=== PATIENT | female | born 1970 | race Caucasian/White ===

== ENCOUNTER 2020-07-03 07:16 | Emergency (ER) | payer OTHER, SELFPAY ==
--- NOTE | ~2020-07-03 | US_ITS ---
EXAMINATION: US venous doppler LE RT DATE: 07/03/2020 08:28 INDICATION: Right lower limb pain TECHNIQUE: Grayscale ultrasound images without and with compression and Doppler ultrasound images of the right lower extremity veins were obtained. COMPARISON: None. FINDINGS: Noncompressible occlusive appearing deep venous thrombosis in one of the paired right posterior tibia l veins near the ankle. The second right posterior tibial vein is patent. The visualized portions of right common femoral vein, profunda (deep) femoral vein, femoral vein, popliteal vein, peroneal trunk , peroneal veins, gastrocnemius vein and greater saphenous vein outflow are patent. IMPRESSION: 1. [id number] deep venous thrombosis in one of the paired right posterior tibial veins near the ankle. Reviewed, dictated and finalized at location A. IMPRESSION: 1. [id number] deep venous thrombosis in one of the paired right posterior tibial veins near the ankle.
--- NOTE | ~2020-07-03 | XR_ITS ---
EXAMINATION: XR ankle RT min 3V DATE: 07/03/2020 08:00 INDICATION: Right ankle pain and swelling TECHNIQUE: Anteroposterior, oblique, mortise, and lateral views of the right ankle were obtained. COMPARISON: None. FINDINGS: Alignment is normal. No fracture. Joint spaces are well maintained. No ankle joint effusion. [place] r calcaneal spur. Mild soft tissue swelling about the medial malleolus. IMPRESSION: 1. No right ankle joint effusion or acute osseous abnormality. Reviewed, dictated and finalized at location A.
[2020-07-03 07:27] VITALS: BP 137/104; PULSE 80; RESP 20; TEMP 36.3; O2SAT 98
--- NOTE | 2020-07-03 08:09 | ED.LOWEXIN ---
HPI - Extremity Injury (Lower) General Chief Complaint: Extremity Injury, Lower Stated Complaint: pain behind knee I think I have a blood clot Time Seen by Provider: 07/03/20 07:51 Source: patient Mode of arrival: ambulatory Limitations: no limitations History of Present Illness HPI Narrative: This patient is a 49 year old female who presents for evaluation of right ankle and lower leg pain. She states 2 days ago she noticed pain to right ankle and lower leg. She states her ankle felt warm and was red. This morning she noticed that her pain has improved and the redness is gone. She has come to the ER because she states the pain felt similar to when she had a DVT 15 years ago. She denies chest pain or sob. Related Data Allergies Allergy/AdvReac Type Severity Reaction Status Date / Time Penicillins Allergy Mild Hives Verified 07/03/20 12:17 propoxyphene AdvReac Nausea and Verified 07/03/20 12:18 [From Darvocet-N] Vomiting Review of Systems Review of Systems: All systems reviewed & are unremarkable except as noted in HPI and below Constitutional: Constitutional: Denies chills and Denies fever(s) Respiratory: Respiratory: Denies cough and Denies dyspnea Musculoskeletal: Musculoskeletal: Reports arthralgias PMFSH Past Medical History Medical History (Updated 07/03/20 @ 12:19 by Miguelina Guillen MD) DVT (deep venous thrombosis) Ulcerative colitis Social History Social History (Updated 07/03/20 @ 08:15 by Miguelina Guillen MD) Smoking status: Never smoker Alcohol intake: never Exam Const: General: no acute distress and alert Orientation/consciousness: patient oriented x3 Eyes: EOM: EOMs intact bilaterally Chest: Chest palpation & inspection: normal inspection of the chest Resp: Effort & Inspection: normal respiratory effort and no retractions Auscultation: clear to auscultation bilaterally Cardio: Rate: regular rate Rhythm: regular rhythm Heart sounds: no murmurs GI: GI Palp: Yes Soft to palpation, No Tenderness to palpation present (GI), No Guarding due to palpation present (GI) and No Rigid due to palpation Skin: General skin exam: normal color Rashes: no rashes Neuro: General: patient oriented x3 and moves all extremities Extrem: General: no pedal edema Other: TTP right medial ankle, no erythema, no increased warm Psych: Mental Status: mental status grossly normal Affect: normal affect Course Reevaluation(s) Reevaluation #1: I have discussed with patient that she was found to have DVT. I notified Dr. bowen's office of patient diagnosis and treatment Date: 07/03/20 Time: 12:16 Vital Signs Vital signs: Vital Signs Temperature 97.4 F L 07/03/20 07:27 Pulse Rate 80 07/03/20 07:27 Respiratory Rate 20 07/03/20 07:27 Blood Pressure 137/104 H 07/03/20 07:27 Pulse Oximetry 98 07/03/20 07:27 Temperature 97.4 F L 07/03/20 07:27 Pulse Rate 80 07/03/20 07:27 Respiratory Rate 20 07/03/20 07:27 Blood Pressure 137/104 H 07/03/20 07:27 Pulse Oximetry 98 07/03/20 07:27 MDM - Extremity Injury (Lower) Lab Data Attestation: I reviewed the patient's lab results. Result diagrams: 07/03/20 11:56 07/03/20 10:56 Labs: Lab Results 07/03/20 07/03/20 07/03/20 Range/Units 10:56 10:56 11:56 WBC 6.4 (4.5-10.0) K/mm3 RBC 4.45 (4.2-5.4) M/mm3 Hgb 13.0 (12.0-15.0) g/dL Hct 40.4 (37.0-47.0) % MCV 90.8 (80-100) fl MCH 29.2 (26-34) pg MCHC 32.2 (32-36) g/dl RDW 12.5 (11.5-14.5) % Plt Count 216 (150-375) k/mm3 MPV 10.7 H (7.4-10.4) fl Immature Gran % (Auto) 0.3 (0-0.5) % Neut % (Auto) 48.2 (45.5-73.1) % Lymph % (Auto) 44.6 H (18.3-44.2) % [place] % (Auto) 5.1 (2.6-8.5) % Eos % (Auto) 0.6 (0-4.4) % Baso % (Auto) 1.2 (0.2-1.2) % Lymph # (Auto) 2.87 (0.9-3.2) K/mm3 [place] # (Auto) 0.3 (0.1-0.6) K/mm3 Eos # (Auto) 0.0 (0-0.3) K/mm3 Baso
[2020-07-03 11:15] LABS: Anion Gap 8 mmol/L (8-16); Blood Urea Nitrogen 11 mg/dL (7-17); Calcium 9.4 mg/dL (8.4-10.2); Carbon Dioxide 28 mmol/L (22-30); Chloride 106 mmol/L (98-107); Estimated CRCL calculation 90 ml/min; Estimated Glomerular Filt Rate > 60; Glucose 103 mg/dL (65-105); INR 1.1; Partial Thromboplastin Time 27.5 SECONDS (22.3-36.8); Sodium 142 mmol/L (137-145)
[2020-07-03 12:02] LABS: Basophils Absolute Auto 0.1 K/mm3 (0.0-0.1); Basophils Percent Auto 1.2 % (0.2-1.2); Eosinophils Percent Auto 0.6 % (0-4.4); Hematocrit 40.4 % (37.0-47.0); Immature Granulocyte Absolute 0.02 K/mm3 (0.00-0.031); Immature Granulocyte Percent A 0.3 % (0-0.5); Lymphocytes Absolute Auto 2.87 K/mm3 (0.9-3.2); Lymphocytes Percent Auto 44.6 % (18.3-44.2); Mean Corpuscular HGB Conc 32.2 g/dl (32-36); Mean Corpuscular Hemoglobin 29.2 pg (26-34); Mean Corpuscular Volume 90.8 fl (80-100); Mean Platelet Volume 10.7 fl (7.4-10.4); Monocytes Absolute Auto 0.3 K/mm3 (0.1-0.6); Monocytes Percent Auto 5.1 % (2.6-8.5); Neutrophils Absolute Auto 3.1 K/mm3 (1.3-6.7); Neutrophils Percent Auto 48.2 % (45.5-73.1); Platelet Count Result 216 k/mm3 (150-375); Red Blood Count 4.45 M/mm3 (4.2-5.4); Red Cell Distribution Width 12.5 % (11.5-14.5); White Blood Count 6.4 K/mm3 (4.5-10.0)
[2020-07-03] MEDS: APIXABAN 5 MG TABLET 10 MG PO (12:19)
== END 2020-07-03 12:32 | disposition home or self-care (01) ==
PROVIDERS: Emergency Provider General Practice; PCP Internal Medicine
DX: I82.441 Acute embolism and thrombosis of right tibial vein (principal)
CPT/HCPCS: 36415; 73610; 80048; 85025; 85610; 85730; 93971; 99284; A9270

== ENCOUNTER 2021-11-20 12:07 | Emergency (ER) | payer OTHER, SELFPAY ==
--- NOTE | ~2021-11-20 | XR_ITS ---
EXAMINATION: XR ankle RT min 3V DATE: 11/20/2021 12:34 INDICATION: Right ankle pain. Fall. TECHNIQUE: 4 views of right ankle were obtained. COMPARISON: Right ankle radiographs 07/03/2020 FINDINGS: There is an oblique fracture of distal fibula with medial aspect of the fracture line 2 mm distal to the level of the tibial plafond. The distal fracture fragment demonstrates near-anatomic al ignment. There is mild midfoot osteoarthritis. There is chronic heterotopic ossification distal to me dial malleolus. There is an enthesophyte at plantar aspect of calcaneal tuberosity. Ankle soft tissue swelling is noted. IMPRESSION: 1. Oblique fracture of distal fibula. Reviewed, dictated and finalized at location A. OR TELECOMMUNICATIONS SPECIALIST
--- NOTE | 2021-11-20 12:33 | ED.LOWEXIN ---
HPI - Extremity Injury (Lower) General Chief Complaint: Extremity Injury, Lower Stated Complaint: Right Foot Pain Source: patient Mode of arrival: wheelchair Limitations: no limitations History of Present Illness HPI Narrative: 51-year-old female presented for complaint of right ankle pain after injury today. She endorses slipping in her bathroom, right lower extremity was behind her when she landed and she heard a pop. She denies numbness, tingling, weakness of the extremity. She was not able to bear any weight. She has not taken anything for pain. No other injuries or pain reported. history of fractured right ankle approximately 2004. Related Data Home Medications Medication Instructions Recorded Confirmed warfarin 7 mg DAILY 11/20/21 11/20/21 Allergies Allergy/AdvReac Type Severity Reaction Status Date / Time Penicillins Allergy Mild Hives Verified 07/03/20 12:17 propoxyphene AdvReac Nausea and Verified 07/03/20 12:18 [From Sharla-N] Vomiting Review of Systems Review of Systems: CONSTITUTIONAL: Denies body aches, fever, chills, or sweats. EYES: Denies visual changes, redness, or discharge. ENT: Denies rhinorrhea, congestion, sore throat, or otalgia. CARDIOVASCULAR: Denies chest pain, palpitations, or edema. RESPIRATORY: Denies cough or dyspnea. GASTROINTESTINAL: Denies abdominal pain, nausea, vomiting, or diarrhea. GENITOURINARY: Denies dysuria or hematuria. SKIN: Denies rash, itching, or wounds. MUSCULOSKELETAL: Endorses right anterior and lateral ankle pain NEUROLOGIC: Denies headache, numbness, tingling, or weakness. PSYCH: Denies depression or anxiety. All systems reviewed & are unremarkable except as noted in HPI and below PMFSH Past Medical History Medical History DVT (deep venous thrombosis) Ulcerative colitis Social History Social History Smoking status: Never smoker Alcohol intake: never Comments At time of signature, I have reviewed and agree with nursing past medical, surgical, social and family history unless otherwise noted. Please see nursing chart for further information. There is no relevant family history pertinent to the presenting complaint Exam Narrative: GENERAL: Well-appearing, well-nourished, and in no acute distress. HEAD: Normocephalic, atraumatic. EYES: PERRLA, conjunctivae clear NECK: Supple. CHEST: Speaks in full sentences. No respiratory distress. HEART: Regular rate and rhythm. Normal and equal peripheral pulses. EXTREMITIES: Right anterior ankle pain, moderate swelling to right lateral ankle, limited range of motion due to pain. Unable to bear weight. Mild right lateral ankle edema, no ecchymosis. 3/5 strength with flexion and extension. No open wounds, no skin tenting, no devitalized tissue or atrophy, no trophic changes, no obvious deformity. Distal pulses palpable and equal bilaterally, skin warm, dry, pink. Capillary refill less than 3 seconds. SKIN: Warm, dry, no rash. NEURO: Alert and oriented x3. PSYCH: Normal mood and affect Course Course Emergency Course: Reviewed xray with pt. Advised to avoid stairs, f/u with ortho. Patient is aware of diagnosis, understands and agrees to treatment plan. Anticipatory guidance given. Patient agrees to follow-up as directed and is aware of reasons to seek care at the emergency department. Portions of this record may have been created with voice recognition software Level of Care: Express Care Visit Vital Signs Vital signs: Vital Signs Temperature 97.4 F L 11/20/21 12:36 Pulse Rate 78 11/20/21 12:36 Respiratory Rate 16 11/20/21 12:36 Blood Pressure 144/95 H 11/20/21 12:36 Pulse Oximetry 100 11/20/21 12:36 Temperature 97.4 F L 11/20/21 12:36 Pulse Rate 78 11/20/21 12:36 Respiratory Rate 16 11/20/21 12:36 Blood Pressure 144/95 H 11/20/21 12:36 Pulse Oximetry 100
[2021-11-20 12:36] VITALS: BP 144/95; PULSE 78; RESP 16; TEMP 36.3; O2SAT 100
[2021-11-20] MEDS: ACETAMINOPHEN 500 MG TABLET 1000 MG PO (13:21)
== END 2021-11-20 13:25 | disposition home or self-care (01) ==
PROVIDERS: Emergency Provider Nurse Practitioner Family; PCP Internal Medicine
DX: S82.839A Other fracture of upper and lower end of unspecified fibula, initial encounter for closed fracture (principal); W01.0XXA Fall on same level from slipping, tripping and stumbling without subsequent striking against object, initial encounter; Z86.718 Personal history of other venous thrombosis and embolism
CPT/HCPCS: 29515; 73610; 99214; A9270; G0463

== ENCOUNTER 2022-07-02 10:24 | Emergency (ER) | payer OTHER, SELFPAY ==
--- NOTE | ~2022-07-02 | CT_ITS ---
EXAMINATION: CT abdomen pelvis wo con DATE: 07/02/2022 11:45 INDICATION: Left flank pain TECHNIQUE: Computed tomography (CT) of the abdomen and pelvis was performed without intravenous contr ast. The dose-length product (DLP) was 195.72 mGy-cm. Automated exposure control and iterative recons truction technique were employed. COMPARISON: None FINDINGS: The lung bases are clear. The heart size is normal. There is a moderate-sized sliding hiata l hernia. The liver, spleen, pancreas, gallbladder, and adrenal glands are normal. The right kidney i s unremarkable. There is a 6 mm stone of the distal left ureter causing moderate left hydroureteronep hrosis. There is a 3 mm nonobstructing stone of the left kidney. No pathologically enlarged abdominal or pelvic lymph nodes are identified. There is no free intraperitoneal gas or evidence of bowel obst ruction. There is mild lumbar spondylosis. IMPRESSION: 1. 6 mm stone of the distal left ureter causing moderate hydroureteronephrosis. 2. Nonobstructing left nephrolithiasis. Reviewed, dictated and finalized at location B.
--- NOTE | ~2022-07-02 | XR_ITS ---
EXAMINATION: XR abdomen/kub 1V INDICATION: Left flank pain TECHNIQUE: Supine views of the abdomen were obtained on 2 radiographs. COMPARISON: CT from today FINDINGS: There is a 6 mm stone of the left pelvis projecting in the expected location of the distal left ureter. Pelvic phleboliths are noted. The bowel gas pattern is normal. The visualized lung bases are clear. IMPRESSION: 1. 6 mm stone of the distal left ureter. Reviewed, dictated and finalized at location B.
--- NOTE | 2022-07-02 10:45 | ED.ABDPAIN ---
HPI - Abdominal Pain General Chief Complaint: Abdominal Pain <JOSE M Brewer Last Filed: 07/02/22 18:45> Stated Complaint: Left abd pain radiates to back <JOSE M Brewer Last Filed: 07/02/22 18:45> Time Seen by Provider: 07/02/22 10:25 <JOSE M Brewer Last Filed: 07/02/22 18:45> History of Present Illness HPI narrative: 51-year-old female here for evaluation of left-sided abdominal pain/flank pain for the past day. Patient states that the pain first came on 3 days ago, was severe in nature, was intermittent, and also associated with nausea and vomiting. The pain eased up on its own, but states that it returned this morning and became more severe, which prompted her ED evaluation. It begins in her left flank and moves around into her groin. She also notes that she has had blood in her urine over the past several days. No dysuria, urgency or frequency, vaginal discharge, fevers, diarrhea. Has never had a kidney stone. <JOSE M Brewer Last Filed: 07/02/22 18:45> Related Data Home Medications: Home Medications Medication Instructions Recorded Confirmed warfarin 5 mg tablet 7 mg DAILY 11/20/21 11/20/21 warfarin 1 mg tablet mg 07/02/22 <JOSE M Brewer Last Filed: 07/02/22 18:45> Allergies/Adverse Reactions: Allergies Allergy/AdvReac Type Severity Reaction Status Date / Time Penicillins Allergy Mild Hives Verified 07/02/22 11:09 propoxyphene AdvReac Nausea and Verified 07/02/22 11:09 [From Darvocet-N] Vomiting <JOSE M Brewer Last Filed: 07/02/22 18:45> Review of Systems Review of Systems: Gen: Denies fevers or chills Eyes: Denies eye pain or visual change ENT: Denies congestion Respiratory: Denies shortness of breath or cough CV: Denies chest pain or palpitations GI: Reports left-sided abdominal pain, nausea and vomiting. : Reports hematuria. Denies burning, urgency, frequency or hematuria Musculoskeletal: Reports left-sided back pain. Neuro: Denies numbness, tingling, weakness or focal weakness Skin: Denies rash Except as documented, all other systems reviewed and negative <Taina Mejia PA-C - Last Filed: 07/02/22 18:45> [facility] Past Medical History Medical History: Medical History DVT (deep venous thrombosis) Ulcerative colitis <Taina Mejia PA-C - Last Filed: 07/02/22 18:45> Social History Social History: Social History Smoking status: Never smoker Alcohol intake: never <Taina Mejia PA-C - Last Filed: 07/02/22 18:45> Exam Narrative: APPEARANCE: Uncomfortable appearing. Head: Normocephalic and atraumatic. EYES: PERRLA/EOMI, conjunctivae clear NOSE: No nasal drainage EARS: External ear normal in appearance THROAT: Oropharynx is clear. Mucous membranes are moist. NECK: Supple. No adenopathy, no masses. RESPIRATORY: Airway patent, respirations nonlabored. Clear to auscultation bilaterally, no rales, rhonchi, wheezing. CARDIOVASCULAR: Regular rate and rhythm without murmurs, rubs, or gallops. ABDOMINAL: Normoactive bowel sounds. Soft, nontender, nondistended. No rebound tenderness or guarding. MUSCULOSKELETAL: Extremities are warm and well-perfused. Moves all extremities well. No edema. NEURO: Normal speech. No focal neurologic deficits. SKIN: Skin is warm and dry. No rashes. PSYCHIATRIC: Normal affect/mood. <Taina Mejia PA-C - Last Filed: 07/02/22 18:45> Course INDUSTRIAL GAS FITTER HELPER/PA Physician Supervision For this patient encounter, I reviewed the INDUSTRIAL GAS FITTER HELPER or PA documentation, treatment plan, and medical decision making <Stan Moreno MD - Last Filed: 07/03/22 06:58> Vital Signs Vital signs: Vital Signs Temperature 97.8 F 07/02/22 10:50 Pulse Rate 106 H 07/02/22 10:50 Respiratory Rate 16
[2022-07-02 10:50] VITALS: BP 152/97; PULSE 106; RESP 16; TEMP 36.6; O2SAT 100
[2022-07-02] MEDS: ONDANSETRON INJ 4 MG/2 ML VIAL IV PUSH (11:00)
[2022-07-02 11:02] VITALS: BP 152/97; PULSE 88; RESP 16; O2SAT 98
[2022-07-02] MEDS: MORPHINE SULFATE (*CRX) 4 MG/ML INJ IV PUSH (11:10)
[2022-07-02 11:15] LABS: Basophils Percent Auto 0.4 % (0.2-1.2); Eosinophils Percent Auto 0.1 % (0-4.4); Hematocrit 41.9 % (37.0-47.0); Hemoglobin 13.4 g/dL (12.0-15.0); Immature Granulocyte Absolute 0.04 K/mm3 (0.00-0.031); Immature Granulocyte Percent A 0.4 % (0-0.5); Lymphocytes Absolute Auto 1.76 K/mm3 (0.9-3.2); Lymphocytes Percent Auto 17.3 % (18.3-44.2); Mean Corpuscular Hemoglobin 28.8 pg (26-34); Mean Corpuscular Volume 90.1 fl (80-100); Mean Platelet Volume 10.6 fl (7.4-10.4); Monocytes Absolute Auto 0.3 K/mm3 (0.1-0.6); Neutrophils Percent Auto 78.8 % (45.5-73.1); Platelet Count Result 253 k/mm3 (150-375); Red Blood Count 4.65 M/mm3 (4.2-5.4); Red Cell Distribution Width 13.2 % (11.5-14.5); White Blood Count 10.2 K/mm3 (4.5-10.0)
[2022-07-02 11:27] LABS: Lipase 87 U/L (23-300)
[2022-07-02 11:27] LABS: Alanine Aminotransferase 24 U/L (6-35); Albumin Level 4.6 g/dL (3.5-5.1); Alkaline Phosphatase 90 U/L (38-126); Anion Gap 12 mmol/L (8-16); Aspartate Amino Transferase 37 U/L (14-36); Bilirubin,Total 0.5 mg/dL (0.2-1.3); Blood Urea Nitrogen 19 mg/dL (7-17); Calcium 9.5 mg/dL (8.4-10.2); Carbon Dioxide 22 mmol/L (22-30); Chloride 106 mmol/L (98-107); Estimated CRCL calculation 62 ml/min; Estimated Glomerular Filt Rate > 60; Glucose 114 mg/dL (65-110); Potassium 3.7 mmol/L (3.4-5.0); Sodium 140 mmol/L (137-145)
[2022-07-02 11:27] LABS: Add Urine Microscopic? YES; Appearance Urine Cloudy (Clear); Bilirubin Urine 1+ (Negative); Blood Urine 3+ (Negative); Color Urine Brown (Yellow); Glucose Urine UA Negative (Negative); Ketones Urine 2+ mg/dL (Negative); Leukocyte Esterase Ur Negative LEU/UL (Negative); Nitrate Urine Negative (Negative); Protein Urine 2+ mg/dL (Negative); Specific Grav Ur >= 1.030 (1.001-1.035); Urobilinogen Urine 0.2 mg/dL (<2.0)
[2022-07-02 11:45] LABS: Bacteria Urine Trace /hpf; RBC Urine >75 /hpf (0-2)
[2022-07-02] MEDS: KETOROLAC 15 MG/ML VIAL (*BKC) IV PUSH (12:48)
[2022-07-02 13:40] VITALS: BP 148/80; PULSE 78; RESP 14; O2SAT 99
== END 2022-07-02 15:13 | disposition home or self-care (01) ==
PROVIDERS: Physician Assistant; Emergency Provider Emergency Medicine; PCP Internal Medicine
DX: N13.2 Hydronephrosis with renal and ureteral calculous obstruction (principal); Z86.718 Personal history of other venous thrombosis and embolism; Z79.01 Long term (current) use of anticoagulants
CPT/HCPCS: 36415; 74018; 74176; 80053; 81001; 83690; 85025; 87086; 87088; 96374; 96375; 99284; J1885; J2270; J2405

== ENCOUNTER 2023-10-31 15:22 | Emergency (ER) | payer BC, SELFPAY ==
--- NOTE | ~2023-10-31 | XR_ITS ---
Right ankle Technique: AP, oblique, and lateral views were obtained. Clinical History: Pain Findings: Probable acute avulsion fracture present from the dorsal aspect of the talar head. Ankle mo rtise and other visualized joint spaces are preserved. Soft tissues are otherwise unremarkable. Impression: Acute avulsion fracture from the dorsal aspect of the talar head. Reviewed, dictated and finalized at location . DRAWING CHECKER Impression: Acute avulsion fracture from the dorsal aspect of the talar head.
--- NOTE | ~2023-10-31 | XR_ITS ---
Right foot Technique: AP, oblique, and lateral views were obtained. Clinical History: Pain Findings: There is probable focal avulsion fracture from the dorsal aspect of the talar head. No othe r fracture or dislocation seen. Osseous alignment is anatomic. Joint spaces are preserved without ero sive or degenerative change. Soft tissues are unremarkable. Impression: Probable acute avulsion fracture from the dorsal aspect of the talar head. Reviewed, dictated and finalized at location M. CHING CONTRACTOR Impression: Probable acute avulsion fracture from the dorsal aspect of the talar head.
[2023-10-31 15:25] VITALS: BP 136/92; PULSE 74; RESP 20; TEMP 36.2; O2SAT 100
--- NOTE | 2023-10-31 16:04 | ED.LOWEXIN ---
HPI - Extremity Injury (Lower) General Chief Complaint: Extremity Injury, Lower Stated Complaint: right ankle pain Time Seen by Provider: 10/31/23 15:36 Source: patient Mode of arrival: ambulatory Limitations: no limitations History of Present Illness HPI Narrative: This is a 53 year old female that presents to the ER for right ankle injury sustained yesterday. Reports she slipped and fell and twisted her right ankle. Reports pain and swelling to the foot and ankle. She did not his her head or lose consciousness. Denies decreased ROM or numbness. Related Data Home Medications Medication Instructions Recorded Confirmed warfarin 5 mg tablet 7 mg DAILY 11/20/21 09/04/23 warfarin 2 mg tablet 2 mg PO [id number] 09/04/23 09/04/23 Allergies Allergy/AdvReac Type Severity Reaction Status Date / Time Penicillins Allergy Mild Hives Verified 10/31/23 15:27 propoxyphene AdvReac Nausea and Verified 10/31/23 15:27 [From Darvocet-N] Vomiting Review of Systems Review of Systems: CONSTITUTIONAL: Denies fever MUSCULOSKELETAL: Reports joint pain, and myalgia. NEUROLOGIC: Denies numbness All systems reviewed & are unremarkable except as noted in HPI and below PMFSH Past Medical History Medical History Abnormal colonoscopy ulcerative colitis, pseudo polypoid formation 2016 DVT (deep venous thrombosis) Osteopenia 2016 Rectal abscess pararectal abscess drainage Ulcerative colitis Vaginal delivery xs 2 Surgical History Surgical History H/O breast biopsy cyst drainage; subcutaneous abscess H/O gynecological procedure cryotherapy - abnormal cells History of colposcopy History of pancreatic surgery FNA - pancreatic cyst Family History Family History Other Cancer Heart disease Hypertension Pulmonary embolism Social History Social History Smoking status: Never smoker Alcohol intake: never Substance use: never Substance use type: does not use Lack of Transportation: No Lack of Food: Never True Current Housing: I Have Housing Concerned About Future Housing: No Difficulty Paying Gas/Electric Bills: No Difficulty Paying for Meds: No Currently Unemployed: No Education: High School Diploma/GED Difficulty w/ Childcare or Family Care: No Living arrangements: with family Occupation/Education: occupation Gender identity (if verbalized by the patient): Female Sexual Orientation (if Verbalized by the Patient): Straight or Heterosexual Exam Narrative: GENERAL: Well-appearing, well-nourished, and in no acute distress. HEAD: Normocephalic, atraumatic. EYES: EOMI. EXTREMITIES: Normal range of motion. No obvious deformity. Normal DP pulse. Normal sensation. Mild edema and bruising to the right mid foot dorsal surface SKIN: Warm, dry, no rash. NEURO: No focal deficits. Alert and oriented x3. PSYCH: Normal mood and affect Course Course Emergency Course: Patient updated on her workup and agrees with plan of care Vital Signs Vital signs: Vital Signs Temperature 97.2 F L 10/31/23 15:25 Pulse Rate 74 10/31/23 15:25 Respiratory Rate 20 10/31/23 15:25 Blood Pressure 136/92 H 10/31/23 15:25 Pulse Oximetry 100 10/31/23 15:25 Oxygen Delivery Room Air 10/31/23 15:25 Temperature 97.2 F L 10/31/23 15:25 Pulse Rate 74 10/31/23 15:25 Respiratory Rate 20 10/31/23 15:25 Blood Pressure 136/92 H 10/31/23 15:25 Pulse Oximetry 100 10/31/23 15:25 Oxygen Delivery Room Air 10/31/23 15:25 Procedures Orthopedic Splinting/Casting Injury #1: Splinting/Casting Date: 10/31/23 Splinting/Casting Time: 17:46 Side: right Lower Extremity Injury Location: foot Lower Extremity Immobilizer: posterior splint Splint:
[2023-10-31] MEDS: ACETAMINOPHEN 500 MG TABLET 1000 MG PO (18:10)
== END 2023-10-31 18:13 | disposition home or self-care (01) ==
PROVIDERS: Emergency Provider Physician Assistant; PCP Internal Medicine
DX: S92.151A Displaced avulsion fracture (chip fracture) of right talus, initial encounter for closed fracture (principal); K51.90 Ulcerative colitis, unspecified, without complications; M85.80 Other specified disorders of bone density and structure, unspecified site; Z86.718 Personal history of other venous thrombosis and embolism; W01.0XXA Fall on same level from slipping, tripping and stumbling without subsequent striking against object, initial encounter; X50.9XXA Other and unspecified overexertion or strenuous movements or postures, initial encounter
CPT/HCPCS: 29515; 73610; 73630; 99284; A9270